=== PATIENT | female | born 1975 ===

== ENCOUNTER 2018-01-26 11:02 | Outpatient (CLI) | payer OTHER ==
--- NOTE | 2018-01-26 12:01 | Ultrasound Report ---
RIGHT BREAST ULTRASOUND: 01/26/18 11:02:00 CLINICAL: Abnormal mammogram. COMPARISON: 01/24/18 and 12/23/17 mammograms from [facility] FINDINGS: Ultrasound the right breast(including all four quadrants and the retroareolar area) was performed and demonstrated an oval cyst with a slightly lobular shape and a single thin partial septation at 8 o'clock 9 cm from the nipple. It measures 1.5 x 0.7 x 0.9 cm and correlates with the mammographic density far posterior near the pectoral muscle. No solid mass or shadowing. No other cyst. IMPRESSION: A benign 1.5 cm cyst at 8 o'clock 9 cm from the nipple. BI-RADS 2 - - Benign RECOMMENDATION: Routine mammographic screening in one year.
== END 2018-01-26 11:03 | disposition home or self-care (01) ==
LOC: SPVWC 11:02
PROVIDERS: ATTEND Surgery
DX: N60.01 Solitary cyst of right breast (principal)